=== PATIENT | female | born 2000 | race Caucasian/White ===

== ENCOUNTER 2023-03-03 07:05 | Inpatient (IN) | payer OTHER ==
[~2023-03-03 07:05] MED LIST: Bupivacaine 0.25% 10 ML SDV ONE
[2023-03-03] MEDS ORDERED: Sodium Chloride 0.9% 10 ML Syringe FLUSH PRN (07:24)
[2023-03-03] MEDS ORDERED: Misoprostol 25 MCG (1/4 of 100 MCG) Tab VAG PRN (07:25)
[2023-03-03] MEDS ORDERED: Nalbuphine 10 MG/0.5 ML Syringe IVPUSH PRN (07:27)
[2023-03-03] MEDS ORDERED: Ondansetron 4 MG/2 ML SDV IVPUSH PRN (07:27)
[2023-03-03] MEDS ORDERED: Acetaminophen 325 MG Tab PO PRN ×2 (07:27→23:06)
[2023-03-03] MEDS ORDERED: Oxytocin/Lactated Ringers 10 UNIT/1,000 ML BAG IV SCH (07:30)
[2023-03-03 08:03] LABS: HEMATOCRIT 35.3 % (34.1-44.9); HEMOGLOBIN 11.8 gm/dl (11.2-15.7); MEAN CORPUSCULAR HEMOGLOBIN 29.6 pg (25.6-32.2); MEAN CORPUSCULAR HGB CONC 33.4 g/dl (32.2-35.5); MEAN CORPUSCULAR VOLUME 88.7 fl (79.4-94.8); MEAN PLATELET VOLUME 10.2 fl (9.4-12.3); PLATELET COUNT,PLT 199 K/mm3 (182-369); RED BLOOD CELL COUNT 3.98 M/mm3 (3.98-5.22); WHITE BLOOD CELL COUNT,WBC 6.38 K/mm3 (3.98-10.04)
[2023-03-03] MEDS ORDERED: Sodium Chloride 0.9% 10 ML Syringe FLUSH SCH (09:00)
[2023-03-03] MEDS: Lactated Ringers 1,000 ML IV SCH ×2 (12:25→17:17)
[2023-03-03] MEDS ORDERED: diphenhydrAMINE 50 MG/ML SDV IVPUSH PRN (12:49)
[2023-03-03] MEDS ORDERED: fentaNYL 100 MCG/2 ML SDV EPIDUR PRN (12:49)
[2023-03-03] MEDS ORDERED: Bupivacaine/fentaNYL/NS 100 ML Bag EPIDUR PRN (12:49)
[2023-03-03] MEDS ORDERED: ePHEDrine 50 MG/ML SDV IVPUSH PRN (12:49)
[2023-03-03] MEDS ORDERED: Methylergonovine 0.2 MG/1 ML Amp IM PRN (23:06)
[2023-03-03] MEDS ORDERED: Benzocaine/Menthol 20%-0.5% Spray 78 GM Cannister TOP PRN (23:06)
[2023-03-03] MEDS ORDERED: Witch Hazel Medicated Pads 40/Jar TOP PRN (23:06)
[2023-03-03] MEDS ORDERED: Ibuprofen 600 MG Tab PO PRN (23:06)
[2023-03-03] MEDS ORDERED: Docusate Sodium 100 MG Cap PO PRN (23:06)
[2023-03-04] MEDS ORDERED: Citalopram 20 MG Tab PO SCH (09:00)
== END 2023-03-05 11:43 | disposition home or self-care (01) | DRG 807 ==
LOC: JD.OB 07:05 → OBSVTOIN 22:41 → JD.OB 22:42
PROVIDERS: ADMIT Obstetrics & Gynecology; ATTEND Obstetrics & Gynecology
PROC: 10E0XZZ Delivery of Products of Conception, External Approach (ICD-10-PCS; principal; 2023-03-03)
PROC: 10907ZC Drainage of Amniotic Fluid, Therapeutic from Products of Conception, Via Natural or Artificial Opening (ICD-10-PCS; 2023-03-03)
PROC: 00HU33Z Insertion of Infusion Device into Spinal Canal, Percutaneous Approach (ICD-10-PCS; 2023-03-03)
PROC: 3E0R3BZ Introduction of Anesthetic Agent into Spinal Canal, Percutaneous Approach (ICD-10-PCS; 2023-03-03)
PROC: 3E0P7VZ Introduction of Hormone into Female Reproductive, Via Natural or Artificial Opening (ICD-10-PCS; 2023-03-03)
PROC: 3E033VJ Introduction of Other Hormone into Peripheral Vein, Percutaneous Approach (ICD-10-PCS; 2023-03-03)
DX: O24.424 Gestational diabetes mellitus in childbirth, insulin controlled (principal); Z37.0 Single live birth; Z3A.39 39 weeks gestation of pregnancy
CPT/HCPCS: 36415; 51701; 51702; 59025; 59409; 82947; 85027; 86592; 86850; 86900; 86901; A9270-GY; C1726; J2210; J2405; J2590; J3010; J3490; J7120

== ENCOUNTER 2025-05-17 07:08 | Inpatient (IN) | payer BC ==
[2025-05-17] MEDS ORDERED: Ondansetron 4 MG/2 ML SDV IVPUSH PRN (07:14)
[2025-05-17] MEDS ORDERED: Sodium Chloride 0.9% 10 ML Syringe FLUSH PRN (07:14)
[2025-05-17] MEDS ORDERED: Nalbuphine 10 MG/1 ML Vial IVPUSH PRN (07:14)
[2025-05-17] MEDS ORDERED: Oxytocin/0.9 % Sodium Chloride 30 UNIT/500 ML BAG IV SCH (07:15)
[2025-05-17 07:43] LABS: BASOPHILS ABSOLUTE AUTO 0.0 K/mm3 (0.0-0.2); BASOPHILS PERCENT AUTO 0.1 % (0.0-1.0); EOSINOPHILS ABSOLUTE AUTO 0.1 K/mm3 (0.0-0.4); EOSINOPHILS PERCENT AUTO 0.9 % (0.0-6.0); IMMATURE GRAN ABSOLUTE AUTO 0.03 K/mm3 (0.00-0.05); IMMATURE GRAN PERCENT AUTO 0.4 % (0.0-0.4); LYMPHOCYTES ABSOLUTE AUTO 1.7 K/mm3 (1.0-4.8); LYMPHOCYTES PERCENT AUTO 23.8 % (24.0-44.0); MEAN PLATELET VOLUME 10.6 fl (9.4-12.3); MONOCYTES ABSOLUTE AUTO 0.6 K/mm3 (0.0-0.8); MONOCYTES PERCENT AUTO 8.5 % (0.0-8.0); NEUTROPHILS ABSOLUTE AUTO 4.6 K/mm3 (1.8-7.7); NEUTROPHILS PERCENT AUTO 66.3 % (41.0-71.0); NRBC ABSOLUTE 0.00 (0.00-0.02); NRBC PERCENT 0.0 % (0.0-0.2); PLATELET COUNT,PLT 191 K/mm3 (150-400); RED BLOOD CELL COUNT 4.33 M/mm3 (4.10-5.30); WHITE BLOOD CELL COUNT,WBC 6.97 K/mm3 (3.9-11.3)
[2025-05-17] MEDS: Lactated Ringers 1,000 ML IV SCH (07:52)
[2025-05-17] MEDS: Oxytocin/0.9 % Sodium Chloride 30 UNIT/500 ML BAG IV SCH (07:52)
[2025-05-17] MEDS ORDERED: diphenhydrAMINE 50 MG/ML SDV IVPUSH PRN (11:23)
[2025-05-17] MEDS ORDERED: ePHEDrine 50 MG/ML SDV IVPUSH PRN (11:23)
[2025-05-17] MEDS ORDERED: fentaNYL 100 MCG/2 ML SDV EPIDUR PRN (11:23)
[2025-05-17] MEDS: Bupivacaine/fentaNYL/NS 100 ML Bag EPIDUR PRN (11:36)
[2025-05-17] MEDS: Witch Hazel Medicated Pads 40/Jar TOP PRN (16:32)
[2025-05-17] MEDS: Benzocaine/Menthol 20%-0.5% Spray 78 GM Cannister TOP PRN (16:33)
[2025-05-17] MEDS: Sodium Chloride 0.9% 10 ML Syringe FLUSH SCH (19:41)
== END 2025-05-18 16:15 | disposition home or self-care (01) | DRG 560 ==
LOC: JD.OB 07:08 → OBSVTOIN 15:08 → JD.OB 15:09
PROVIDERS: ADMIT Obstetrics & Gynecology; ATTEND Obstetrics & Gynecology
PROC: 10E0XZZ Delivery of Products of Conception, External Approach (ICD-10-PCS; principal; 2025-05-17)
PROC: 10907ZC Drainage of Amniotic Fluid, Therapeutic from Products of Conception, Via Natural or Artificial Opening (ICD-10-PCS; 2025-05-17)
PROC: 3E033VJ Introduction of Other Hormone into Peripheral Vein, Percutaneous Approach (ICD-10-PCS; 2025-05-17)
PROC: 3E0R3BZ Introduction of Anesthetic Agent into Spinal Canal, Percutaneous Approach (ICD-10-PCS; 2025-05-17)
PROC: 00HU33Z Insertion of Infusion Device into Spinal Canal, Percutaneous Approach (ICD-10-PCS; 2025-05-17)
DX: O24.424 Gestational diabetes mellitus in childbirth, insulin controlled (principal); Z37.0 Single live birth; Z3A.39 39 weeks gestation of pregnancy
CPT/HCPCS: 36415; 51701; 51702; 59025; 59409; 85025; 86592; 86850; 86900; 86901; A9270-GY; C1758; J3490; J7120; J7999